=== PATIENT | female | born 1930 | race Caucasian/White ===

== ENCOUNTER 2017-11-20 19:08 | Emergency (ER) | payer OTHER ==
[2017-11-20 19:55] LABS: PLATELET COUNT 212 10^3/uL (150-400)
[2017-11-20 20:04] LABS: INR 2.92 (0.83-1.16); PROTIME(PATIENT) 30.4 SEC (12.0-15.0)
--- NOTE | 2017-11-20 20:54 | EDPHY ---
H & P Time Seen by Provider: 11/20/17 19:47 HPI/ROS: HPI Mechanical fall, head injury. 87-year-old female by ambulance. She is with her daughter. She was out to dinner at a [employer] restaurant. She uses a walker to ambulate. Her walker slipped on the ice and she fell to the right side, striking the back of her head. No loss of consciousness. She currently denies headache. She denies any significant extremity pain. No neck pain. No weakness or loss of sensation in her extremities. She is on Coumadin. ROS: Constitutional: No fever, no chills. As above. Eyes: No discharge. No changes in vision. ENT: No sore throat. No nasal congestion or rhinorrhea. Respiratory: No cough. No shortness of breath. Cardiac: No chest pain, no palpitations. Gastrointestinal: No abdominal pain, no vomiting, no diarrhea. Genitourinary: No hematuria. No dysuria or increased frequency with urination. Musculoskeletal: No back pain. No neck pain. No myalgias or arthralgias. Skin: No rashes. As above. Neurological: No headache. No focal weakness or altered sensation. Past medical history: Coronary artery disease, atrial fibrillation, hypoglycemia, syncope, dyslipidemia, hypothyroid, osteopenia, pulmonary embolism , peptic ulcer disease, hysterectomy and oophorectomy, breast cancer, chronic back pain. Social history: Nonsmoker. Here with her daughter. From [facility] living. Ambulates with a walker. Physical Exam: General Appearance: Alert, no distress. This patient is responding to questions appropriately and in full sentences. This patient appears well- hydrated and well-nourished. Head: Normocephalic atraumatic except for a quarter-size abrasion right posterior parietal scalp. This is oozing some venous blood. No suturable scalp laceration. No bony step-off or deformity noted on palpation of this area. Face: Facial bones are stable on palpation. Eyes: Pupils equal and round and reactive to light, no pallor or injection. No lid erythema or edema. ENT, Mouth: Mucous membranes moist. Dentition is intact. No malocclusion of the jaw. No tongue lacerations or abrasions. Pharynx is clear. The bilateral nasal canals are clear. No septal hematoma. Respiratory: There are no retractions, lungs are clear to auscultation with good air movement bilaterally. Chest wall is stable to AP and lateral palpation. Cardiovascular: Regular rate and rhythm. No murmur. Gastrointestinal: Abdomen is soft and nontender, no masses, bowel sounds normal. Neurological: Motor sensory function is intact. Cranial nerves are normal. Cerebellar function intact. Skin: Warm and dry, no rashes. She has a small skin tear left proximal dorsal index finger. This is nonsuturable it measures about 1 cm in length. Several contusions on the right arm and left ankle. These appear to be old. Musculoskeletal: Neck is supple and nontender. The trachea is midline. No midline cervical, thoracic, lumbar or sacral tenderness on palpation. No flank tenderness on palpation. Extremities are symmetrical, full range of motion. All joints in the bilateral upper and bilateral lower extremities range without pain or impingement. No tenderness on palpation of the long bones in the bilateral upper and bilateral lower extremities. Psychiatric: No agitation. No depression. Database: EKG: EKG time is 8:01 p.m.; EKG shows a narrow complex normal sinus rhythm with a ventricular rate of 64. Questionable left ventricular hypertrophy. Left axis deviation noted. The IN, QRS, QT intervals are within normal limits. There are no ST-T wave changes indicative of ischemic or injury pattern. No evidence of right heart strain. EKG compared to previous EKG from May 2015. Interpreted by me. Imaging: CT scan of head without contrast: Right posterior parietal scalp hematoma noted. Otherwise negative. Results were discussed with staff radiologist Dr. Nicola Knowles. Procedures: Emergency department course: Vital signs reviewed. She is moderately hypertensive. Vital signs otherwise normal. EKG obtained and reviewed by myself. She was sent for CT imaging of her head without contrast. Scalp wound was appropriately cleansed and irrigated. I cannot identify a suturable laceration. 8:55 p.m., patient re-evaluated. Resting comfortably at this time. No change in her neurologic status. Results of CT scan and emergency department workup discussed with her and daughter. The patient does feel comfortable going home with the daughter. Feel she is safe for discharge at this time. Her daughter will take her back to her assisted living facility. Follow-up and return to emergency department precautions reviewed with the 2 of them. All of their questions were answered. The patient was discharged home in good condition with her daughter. Differential Diagnosis: The differential diagnosis on this patient includes but is not limited to mechanical fall, scalp abrasion, scalp contusion. Skull fracture, cervical spine fracture, traumatic brain injury, other significant traumatic injury unlikely. This represents a partial list of diagnoses considered. These considerations are based on history, physical exam, past history, reassessment and diagnostic testing. Smoking Status: Never smoked Constitutional: Initial Vital Signs Temperature (C) 36.7 C 11/20/17 19:18 Heart Rate 77 11/20/17 19:18 Respiratory Rate 16 11/20/17 19:18 Blood Pressure 165/60 H 11/20/17 19:18 O2 Sat (%) 99 11/20/17 19:18 O2 Delivery Mode Room Air Allergies/Adverse Reactions: Penicillins Allergy (Intermediate, Verified 11/20/17 19:22) Rash Home Medications: Medication Instructions Recorded Warfarin Sodium [Coumadin] 0 mg PO DAILY16 07/08/11 Amiodarone HCl 05/17/15 Calcium 05/17/15 Furosemide 05/17/15 Iron 05/17/15 Multi-Vitamin Daily 05/17/15 Potassium 05/17/15 Simvastatin 05/17/15 Tylenol 05/17/15 Vitamin D3 05/17/15 Medical Decision Making - Data Points Laboratory Results: Laboratory Results 11/20/17 19:40 11/20/17 19:40 Departure - Departure Disposition: Home, Routine, Self-Care Clinical Impression: Mechanical fall, Posterior scalp abrasion with contusion, Head injury Condition: Good Instructions: Fall Prevention for Older Adults (ED), Head Injury (ED) Additional Instructions: Read and follow provided instructions. Follow-up with your primary care physician within 1-2 days for re-evaluation. Take your medication as prescribed. Return to the emergency department for worsening headache, confusion, nausea or vomiting, bleeding or other serious concerns. Referrals: KUSUM LUGO [Other] - As per Instructions
[2017-11-20 21:37] VITALS: BP 163/40; PULSE 62; RESP 12; TEMP 98.4; O2SAT 93
--- NOTE | 2017-11-21 15:29 | CPEKG ---
Heart Rate: 64 RR Interval: 938 P-R Interval: 216 QRSD Interval: 102 QT Interval: 428 QTC Interval: 442 P [place]: 80 QRS [place]: -47 T Wave [place]: 88 EKG Severity - ABNORMAL ECG - EKG Impression: SINUS RHYTHM EKG Impression: LAD, CONSIDER LEFT ANTERIOR FASCICULAR BLOCK EKG Impression: LVH WITH SECONDARY REPOLARIZATION ABNORMALITY Electronically Signed By: Florentino Galeano 22-Nov-2017 15:49:33
== END 2017-11-20 21:37 | disposition home or self-care (01) ==
DX: S06.0X0A Concussion without loss of consciousness, initial encounter (principal); S00.01XA Abrasion of scalp, initial encounter; I25.10 Atherosclerotic heart disease of native coronary artery without angina pectoris; Z85.3 Personal history of malignant neoplasm of breast; Z79.01 Long term (current) use of anticoagulants; W00.0XXA Fall on same level due to ice and snow, initial encounter; Y92.511 Restaurant or cafe as the place of occurrence of the external cause; Y93.89 Activity, other specified

== ENCOUNTER 2018-12-24 09:04 | Emergency (ER) | payer OTHER ==
--- NOTE | 2018-12-24 09:17 | EDPHY ---
General - History Smoking Status: Never smoked Time Seen by Provider: 12/24/18 09:14 Narrative: CLINICAL IMPRESSION: Mechanical fall, chest wall pain ASSESSMENT/PLAN: Patient is an 88-year-old female with a history of hypertension, hyperlipidemia , valvular disease, syncope, hypothyroidism, osteopenia, atrial fibrillation, DVT, PUD, remote breast cancer and chronic back pain who presents to the emergency department after sustaining a mechanical fall complaining of anterior chest wall pain. Patient is mildly uncomfortable appearing however not toxic- appearing. Her neurological exam is grossly normal with no focal deficit. She was placed on a quality assurance monitor final the, ECG revealed normal sinus rhythm at a rate of 64, no findings to suggest ACS. Troponin negative at 0.04. Physical examination reveals reproducible anterior chest wall pain most prominent right of the sternum, her lungs were clear to auscultation bilaterally. Patient is on long-term Coumadin, she did hit her head during this fall and subsequently a CT head, C-spine and chest were obtained. CBC revealed stable anemia. Sodium mildly low 130, no evidence of other metabolic abnormality or acute kidney injury. INR was therapeutic at 2.99. CT head revealed senescent changes, no evidence of intracranial hemorrhage or skull fracture. C-spine CT revealed multilevel degenerative disc disease with anterolisthesis at C3-4, dorsal disc osteophyte C5-6 and 6 7 with right central canal narrowing, no evidence of acute fracture. Patient had no midline neck pain, in further discussion she states that she is aware of these above findings. There was no evidence of epidural compression syndrome or cauda equina. Chest CT revealed no evidence of thoracic or it intrathoracic traumatic injury. The patient was given Tylenol with very mild improvement of her discomfort. We trialed ambulation with walker however patient was unstable and ultimately failed road test. [facility], appropriate and stable for transfer for further evaluation and pain control, will also need case management consultation to address needs at home as she lives independently. The patient remained hemodynamically stable and her neurological exam remained nonfocal prior to transfer to [facility]. I spoke directly with Dr. Calhoun, she will be admitted to Dr. Gurinder Mcrae with the hospitalist service. DIFFERENTIAL DX: Differential diagnosis including but not limited to traumatic head injury, intracranial hemorrhage, traumatic chest injury, hemothorax, pneumothorax, ACS ED COURSE: 0918: Case discussed with Dr. Jain. 09: ECG reviewed by myself and Dr. Jain revealed sinus rhythm at a rate of 64. Reviewed previous ECG from 2018, unchanged. No findings to suggest ACS. 0943: Trop 0.04, negative. 1022: On repeat exam the patient is resting in bed, comfortable appearing. She denies any need for any pain medication. Awaiting CT. 1220: Discussed case with Dr. Livingston, no acute findings of Head/Chest; DDD of cervical spine. Old caudal sternal fracture. 1246: Discussed with Dr. Lj Langley. Will transfer to [facility]. CHIEF COMPLAINT: Mechanical fall, anterior chest pain HPI: Patient is an 88-year-old female with a history of hypertension, hyperlipidemia , atrial fibrillation, valve disease, syncope, hypothyroidism, osteopenia, DVT, remote breast cancer presents to the emergency department by ambulance after sustaining a mechanical fall. Patient reports she was standing trying to put on her sweater when she lost balance falling directly on her back. She denies any midline neck or back pain. She did hit her head however there was no loss of consciousness. She denies any headache, visual changes or extremity weakness. She is complaining of reproducible anterior chest wall pain. She denies any associated shortness of breath, radiation or diaphoresis. Patient denies saddle paresthesias, lower extremity numbness, tingling, major motor weakness, urinary retention or bowel/bladder incontinence. PMH: Hypertension, hyperlipidemia, coronary disease, hypoglycemia, syncope, hypothyroidism, osteopenia, atrial fibrillation, DVT, peptic ulcer disease, remote breast cancer, chronic back pain. Pertinent Past Surgical History: Right rotator cuff, hysterectomy, oophorectomy Family History: Noncontributory Social History: Nonsmoker, present with daughter. Lives at [facility] living. Ambulates with a walker. REVIEW OF SYSTEMS: All other systems negative Constitutional: No fever, no chills, appetite change. Eyes: No discharge, vision change ENT: No sore throat, congestion, ear pain. Cardiovascular: No palpitations. Respiratory: No cough, no shortness of breath. Gastrointestinal: No abdominal pain, no vomiting, diarrhea. Genitourinary: No hematuria, dysuria, flank pain, pelvic pain Musculoskeletal: Anterior chest wall pain. No back pain, joint swelling, joint pain, myalgias. Skin: No rashes, color change. Neurological: No headache, dizziness, weakness. PHYSICAL EXAM: General Appearance: Mildly uncomfortable appearing however not toxic-appearing. HENT: Normocephalic, atraumatic. Bilateral external ears are normal. Bilateral tympanic membranes are normal with pearly martinez reflex. Nares are clear, mucosa is pink. Oropharynx is clear, uvula is midline. There is no tonsillar enlargement or exudate. The dentition is normal. Eyes: PERRLA, no acute vision change, nystagmus, swelling, discharge, pain or photosensitivity. Conjunctiva pink, no pallor or injection Neck: Supple, nontender, no lymphadenopathy, no midline pain, FROM, no meningismus. Back: No step-off, palpable bony abnormality, edema, erythema or ecchymosis of the cervical, thoracic or lumbar spines. Patient has no midline thoracic or lumbar spinal tenderness to palpation. FROM of C-spine. Limited ROM of lumbar spine due to pain. 5/5 and equal strength of the UEs and LEs bilaterally including shoulder shrug. Pulses: 2+ and equal radial, DP and PT pulses bilaterally. Sensation intact and symmetric to light touch from face, UEs and LEs bilaterally. Respiratory: There are no retractions, lungs are clear to auscultation. Patient with anterior, reproducible chest wall tenderness to palpation. She is most tender right of the sternum. No obvious trauma, ecchymosis or abrasions noted. Cardiac: Regular rate and rhythm, grade 2 systolic murmur, no gallops. Gastrointestinal: Abdomen is soft, nontender, bowel sounds normal, no masses/ hernia, no rigidity, guarding or focal peritoneal findings. Neurological: Alert and oriented x 3, CN 2-12 grossly intact, normal gait no ataxia, DTR's intact, normal sensation and strength. Skin: Warm, dry, no rashes, no nodules on palpation. Musculoskeletal: Extremities are symmetrical, full range of motion, patient with chronic right shoulder tenderness to palpation secondary to rotator cuff injury, deformity, swelling, or erythema. Psychiatric: Patient is oriented X 3, there is no agitation. MEDICAL DECISION MAKING: Patient was seen independently. Secondary supervising physician at time of evaluation was Dr. Jain, he did not evaluate this patient. Diagnosis: Mechanical fall, anterior chest pain. New, requires workup Summary: See Assessment and Plan for summary of ED visit Clinical lab tests: ordered / reviewed. Independent visualization of images, tracing, or specimens: Yes. Decision to obtain medical records or history from someone other than the patient: Yes, EMS and daughter Review / Summarize previous medical records: Yes Discussed patient with another provider: Yes, Dr. Jain and Dr. Calhoun Patient Progress: Stable, transfer. (Corinne Allen) Medical Decision Making: I did not see this patient while she was in the emergency department. However her care was discussed with the PA while the patient was in the department. I agree with treatment plan and management (Willie Jain) - Diagnostics Imaging Results: Imaging Impressions Cervical Spine CT 12/24/18 09:15 Impression: Moderately advanced senescent features with no acute intracranial abnormality identified on this unenhanced CT evaluation. Unenhanced CT Scan of the Cervical Spine Technique: A multidetector unenhanced helical CT scan was obtained from the clivus caudally through the upper thoracic spine with images reformatted at 1.25 and 0.625 mm increments and are reviewed in soft tissue, bone, and lung windows. Parasagittal and paracoronal reconstructed images are reviewed on the workstation. The DFOV is 17.8 cm. A dose reduction protocol was used. Findings: There is a mild cervicothoracic levoscoliosis and there is straightening of the normal cervical lordosis. There is 2 mm of C2 anterolisthesis above C3 and 7 mm of C3 anterolisthesis above C4. The degree of anterolisthesis at C2-C3 is unchanged, however, has progressed at the C3-C4 level compared to the 2011 study, at which time it only measured 3 mm. There is 3 mm of C5 posterolisthesis above C6, relatively unchanged. There is no prevertebral or epidural hematoma. The prevertebral soft tissues are notable for mild thyromegaly, right lobe greater than the left. There are atherosclerotic features associated with the carotid and upper mediastinal vascularity. There is some peribronchial thickening and dependent changes seen in the lung apices. There is no evidence of an apical pneumothorax. The lateral masses of C1 and C2 are aligned and the base and the tip of the dens are unremarkable. There is multilevel facet degenerative change, most pronounced at the C3-C4 level where there has been a progressive grade 1 degenerative anterolisthesis. There are degenerative ventral traction osteophytes from C4-C7 with advanced degenerative disk disease. There are also dorsal disk osteophyte complexes noted at C5-C6 and C6-C7, resulting in respectively mild and moderate-severe right paracentral canal stenoses. There is no acute fracture observed. Dorsal interspinous distances are appropriate. Impression: 1. 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 2. There is a grade 1 degenerative anterolisthesis at C3-C4 which is progressed since before, associated with profound facet hypertrophy. 3. There are dorsal disk osteophyte complexes at C5-C6 and C6-C7 resulting in central canal stenoses, as above detailed. 4. There are multilevel variable neural foraminal stenoses secondary to uncovertebral degenerative spondylosis and facet hypertrophy. If there is continuing clinical concern regarding the patient's head or cervical spine, MR imaging could be considered. Findings were discussed with Corinne Allen PA-C at 12:18 p.m. on December 24, 2018. Chest CT 12/24/18 09:16 Impression: 1. There are no acute posttraumatic thoracic findings. 2. Cardiomegaly with coronary artery atherosclerotic calcification and prior aortic valvuloplasty. There are areas of peribronchial thickening, and some minimal groundglass attenuation and trace pleural fluid suggests some potential fluid overload. 3. Secondary features suggestive of some underlying pulmonary artery hypertension. 4. There is a 5.8 mm subpleural noncalcified nodule along the anterior right middle lobe. 5. Postoperative change following a prior Billroth II procedure. Findings were discussed with Corinne Allen PA-C at 12:32 p.m. on December 24, 2018. Head CT 12/24/18 09:16 Impression: Moderately advanced senescent features with no acute intracranial abnormality identified on this unenhanced CT evaluation. Unenhanced CT Scan of the Cervical Spine Technique: A multidetector unenhanced helical CT scan was obtained from the clivus caudally through the upper thoracic spine with images reformatted at 1.25 and 0.625 mm increments and are reviewed in soft tissue, bone, and lung windows. Parasagittal and paracoronal reconstructed images are reviewed on the workstation. The DFOV is 17.8 cm. A dose reduction protocol was used. Findings: There is a mild cervicothoracic levoscoliosis and there is straightening of the normal cervical lordosis. There is 2 mm of C2 anterolisthesis above C3 and 7 mm of C3 anterolisthesis above C4. The degree of anterolisthesis at C2-C3 is unchanged, however, has progressed at the C3-C4 level compared to the 2011 study, at which time it only measured 3 mm. There is 3 mm of C5 posterolisthesis above C6, relatively unchanged. There is no prevertebral or epidural hematoma. The prevertebral soft tissues are notable for mild thyromegaly, right lobe greater than the left. There are atherosclerotic features associated with the carotid and upper mediastinal vascularity. There is some peribronchial thickening and dependent changes seen in the lung apices. There is no evidence of an apical pneumothorax. The lateral masses of C1 and C2 are aligned and the base and the tip of the dens are unremarkable. There is multilevel facet degenerative change, most pronounced at the C3-C4 level where there has been a progressive grade 1 degenerative anterolisthesis. There are degenerative ventral traction osteophytes from C4-C7 with advanced degenerative disk disease. There are also dorsal disk osteophyte complexes noted at C5-C6 and C6-C7, resulting in respectively mild and moderate-severe right paracentral canal stenoses. There is no acute fracture observed. Dorsal interspinous distances are appropriate. Impression: 1. 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 2. There is a grade 1 degenerative anterolisthesis at C3-C4 which is progressed since before, associated with profound facet hypertrophy. 3. There are dorsal disk osteophyte complexes at C5-C6 and C6-C7 resulting in central canal stenoses, as above detailed. 4. There are multilevel variable neural foraminal stenoses secondary to uncovertebral degenerative spondylosis and facet hypertrophy. If there is continuing clinical concern regarding the patient's head or cervical spine, MR imaging could be considered. Findings were discussed with Corinne Allen PA-C at 12:18 p.m. on December 24, 2018. - Objective Vital Signs: Initial Vital Signs Temperature (C) 36.4 C 12/24/18 09:09 Heart Rate 69 12/24/18 09:09 Respiratory Rate 20 12/24/18 09:09 Blood Pressure 220/63 H 12/24/18 09:09 O2 Sat (%) 97 12/24/18 09:09 O2 Delivery Mode Room Air Allergies/Adverse Reactions: Penicillins Allergy (Intermediate, Verified 11/20/17 19:22) Rash Home Medications: Medication Instructions Recorded Warfarin Sodium [Coumadin] 0 mg PO DAILY16 07/08/11 Amiodarone HCl 05/17/15 Calcium 05/17/15 Furosemide 05/17/15 Iron 05/17/15 Multi-Vitamin Daily 05/17/15 Potassium 05/17/15 Simvastatin 05/17/15 Tylenol 05/17/15 Vitamin D3 05/17/15 Laboratory Results: Laboratory Results 12/24/18 09:28 12/24/18 09:34 12/24/18 12/24/18 12/24/18 09:34 09:34 09:31 WBC RBC Hgb Hct MCV MCH MCHC RDW Plt Count PT 29.5 SEC H SEC (12.0-15.0) INR 2.99 H (0.83-1.16) Sodium 130 mEq/L L mEq/L (135-145) Potassium 4.4 mEq/L mEq/L (3.5-5.2) Chloride 97 mEq/L mEq/L (97-110) Carbon Dioxide 25 mEq/l mEq/l (22-31) Anion Gap 8 mEq/L mEq/L (6-14) BUN 20 mg/dL mg/dL (7-23) Creatinine 0.9 mg/dL mg/dL (0.6-1.0) Estimated GFR 59 Glucose 110 mg/dL H mg/dL (70-100) Calcium 8.1 mg/dL L mg/dL (8.5-10.4) POC Troponin I 0.04 ng/mL ng/mL (0.00-0.08) 12/24/18 09:28 WBC 8.93 10^3/uL 10^3/uL (3.80-9.50) RBC 3.42 10^6/uL L 10^6/uL (4.18-5.33) Hgb 11.1 g/dL L g/dL (12.6-16.3) Hct 33.7 % L % (38.0-47.0) MCV 98.5 fL fL (81.5-99.8) MCH 32.5 pg pg (27.9-34.1) MCHC 32.9 g/dL g/dL (32.4-36.7) RDW 13.9 % % (11.5-15.2) Plt Count 219 10^3/uL 10^3/uL (150-400) PT INR Sodium Potassium Chloride Carbon Dioxide Anion Gap BUN Creatinine Estimated GFR Glucose Calcium POC Troponin I Medications Given: Discontinued Medications Acetaminophen (Tylenol) 500 mg PO EDNOW ONE Stop: 12/24/18 12:43 Last Admin: 12/24/18 12:49 Dose: 500 mg Point of Care Test Results: Chemistry 12/24/18 09:31 POC Troponin I 0.04 ng/mL ng/mL (0.00-0.08) Departure - Departure Disposition: Acute Care Hospital Not [facility] Clinical Impression: Chest wall pain Fall Qualifiers: Encounter type: initial encounter Qualified Code(s): W19.XXXA - Unspecified fall, initial encounter Condition: Good Instructions: Chest Wall Pain (ED) Referrals: Patient,NotPresent [Primary Care Provider] - 1-2 days without fail (Please follow-up with your primary care provider at [place].)
[2018-12-24 09:44] LABS: INR 2.99 (0.83-1.16); PROTIME(PATIENT) 29.5 SEC (12.0-15.0)
[2018-12-24] MEDS ORDERED: IOPAMIDOL (ISOVUE-300) 100 ML BTL ONE (10:25)
[2018-12-24] MEDS ORDERED: ACETAMINOPHEN 500 MG TAB PO ONE (12:42)
[2018-12-24 14:53] VITALS: BP 181/56
--- NOTE | 2018-12-24 15:21 | CPEKG ---
Test Reason : OPEN Blood Pressure : / mmHG Vent. Rate : 064 BPM Atrial Rate : 063 BPM P-R Int : 222 ms QRS Dur : 110 ms QT Int : 475 ms P-R-T Axes : 105 -44 085 degrees QTc Int : 490 ms Sinus rhythm Prolonged TX interval LVH with secondary repolarization abnormality Borderline prolonged QT interval Confirmed by Willie Jain ([id number]) on 12/24/2018 3:20:56 PM Referred By: Willie Jain Confirmed By:Willie Jain
== END 2018-12-24 14:55 | disposition short-term general hospital (02) ==
LOC: EDUNIT#
DX: R07.89 Other chest pain (principal); I10 Essential (primary) hypertension; E78.5 Hyperlipidemia, unspecified; Z85.3 Personal history of malignant neoplasm of breast; W19.XXXA Unspecified fall, initial encounter; Y99.9 Unspecified external cause status
CPT/HCPCS: 70450; 71260; 72125; 93005; 99285; Q9967; 84484-ER